=== PATIENT | male | born 1995 | race Caucasian/White ===

== ENCOUNTER 2019-02-08 21:00 | Emergency (ER) | payer OTHER ==
[2019-02-08] MEDS: SOD CHLORIDE 0.9% 1,000 ML IV (22:00)
[2019-02-08] MEDS: ACETAMINOPHEN 325 MG TAB PO (22:02)
[2019-02-08 22:10] LABS: ADD MAN DIFF? NO
[2019-02-08 22:15] LABS: WHITE BLOOD COUNT 10.5 10^3/ul (4.8-10.8)
[2019-02-08 22:15] LABS: BASOPHILS % 0.2 % (0.0-2.0); EOSINOPHILS % 0.3 % (0.0-7.0); HEMATOCRIT 40.4 % (42.0-52.0); HEMOGLOBIN 14.4 g/dl (14.0-18.0); LYMPHOCYTES # 1.8 10^3/ul (0.8-2.9); LYMPHOCYTES % 17.3 % (15.0-51.0); MEAN CORPUSCULAR HEMOGLOBIN 28.1 pg (29.0-33.0); MEAN CORPUSCULAR HGB CONC 35.6 g/dl (32.0-37.0); MEAN CORPUSCULAR VOLUME 78.9 fl (82.0-101.0); MEAN PLATELET VOLUME 9.1 fl (7.4-10.4); MONOCYTE # 0.8 10^3/ul (0.3-0.9); MONOCYTES % 7.6 % (0.0-11.0); NEUTROPHIL # 7.8 10^3/ul (1.6-7.5); NEUTROPHILS % 74.3 % (39.0-77.0); PLATELET COUNT 211 10^3/UL (140-415); RED BLOOD COUNT 5.12 10^6/ul (4.70-6.10)
[2019-02-08] MEDS: ALBUTEROL 0.083% (NEB) 2.5 MG/3 ML AMP HHN (22:21)
[2019-02-08] MEDS: IPRATROPIUM (NEB) 0.5 MG/2.5 ML AMP INH (22:21)
[2019-02-08 22:36] LABS: ANION GAP 12 (5-13); BLOOD UREA NITROGEN 10 mg/dl (7-20); CALCIUM 8.8 mg/dl (8.4-10.2); CARBON DIOXIDE 25 mmol/L (21-31); CHLORIDE 101 mmol/L (97-110); CREATININE 0.78 mg/dl (0.61-1.24); Estimated GFR > 60 mL/min (>60); GLUCOSE 115 mg/dl (70-220); SODIUM 138 mmol/L (135-144)
[2019-02-08 22:55] LABS: POTASSIUM 2.9 mmol/L (3.5-5.1)
[2019-02-08] MEDS: POTASSIUM CHLORIDE (SR) 20 MEQ TAB PO (23:03)
[2019-02-08] MEDS: CEFTRIAXONE 1 GM/50 ML (PMX) 50 ML IVPB (23:04)
[2019-02-08] MEDS: AZITHROMYCIN 500 MG TAB PO (23:48)
[2019-02-08 23:59] LABS: ADD UMIC NO; UR ASCORBIC ACID NEGATIVE (NEGATIVE); UR BILIRUBIN (Dip) NEGATIVE (NEGATIVE); UR BLOOD (Dip) NEGATIVE (NEGATIVE); UR CLARITY CLEAR (CLEAR); UR COLOR AMBER (YELLOW); UR GLUCOSE (Dip) NEGATIVE (NEGATIVE); UR KETONES (Dip) TRACE mg/dL (NEGATIVE); UR LEUKOCYTE ESTERASE (Dip) NEGATIVE Leu/ul (NEGATIVE); UR NITRITE (Dip) NEGATIVE (NEGATIVE); UR SPECIFIC GRAVITY (Dip) 1.025 (1.003-1.030); UR TOTAL PROTEIN (Dip) NEGATIVE (NEGATIVE); UR UROBILINOGEN (Dip) 1+ mg/dL (NEGATIVE)
== END 2019-02-09 00:38 | disposition home or self-care (01) ==
LOC: FTE 02-09 00:38
DX: J18.9 Pneumonia, unspecified organism (principal)
CPT/HCPCS: 36415; 71046; 80048; 81003; 83605; 85025; 87040-91; 94664; 96374; 99284-25